=== PATIENT | male | born 1990 | race Caucasian/White ===

== ENCOUNTER 2023-05-12 01:57 | Emergency (ER) | payer BC, MEDICAID ==
[2023-05-12] MEDS ORDERED: Sodium Chloride 0.9% 1,000 ML IV ONE (02:26)
[2023-05-12] MEDS ORDERED: Loperamide 2 MG Cap PO STA (02:26)
[2023-05-12 02:34] LABS: HEMATOCRIT 43.9 % (40.1-51.0); HEMOGLOBIN 15.4 gm/dl (13.7-17.5); MEAN CORPUSCULAR HEMOGLOBIN 29.5 pg (25.7-32.2); MEAN CORPUSCULAR HGB CONC 35.1 g/dl (32.2-35.5); MEAN CORPUSCULAR VOLUME 84.1 fl (79.0-92.2); MEAN PLATELET VOLUME 9.9 fl (9.4-12.3); PLATELET COUNT,PLT 314 K/mm3 (163-337); RED BLOOD CELL COUNT 5.22 M/mm3 (4.63-6.08); WHITE BLOOD CELL COUNT,WBC 10.47 K/mm3 (4.23-9.07)
[2023-05-12 02:45] LABS: A/G RATIO 1.2 (1-2); ALBUMIN 4.3 g/dl (3.4-5.0); ANION GAP 13.8 (5-15); BILIRUBIN TOTAL 0.5 mg/dL (0.2-1.0); C-REACTIVE PROTEIN 0.8 mg/dL (<1.0); CALCIUM 9.5 mg/dL (8.5-10.1); CREATININE 1.2 mg/dL (0.7-1.3); EST CRCL DRUG DOSING (CG) 102.75 mL/min; MAGNESIUM 1.8 mg/dL (1.8-2.4); POTASSIUM,K 3.8 mEq/L (3.5-5.1)
[2023-05-12 03:02] LABS: BAND PERCENT MAN 0 % (0-10); BASOPHILS PERCENT MAN 0 (0.2-1.2); EOSINOPHILS PERCENT MAN 1 % (0.8-7.0); LYMPHOCYTES % ATYPICAL MANUAL 0 %; LYMPHOCYTES PERCENT MAN 24 % (20-40); MONOCYTES PERCENT MAN 9 % (2-10)
[2023-05-12 03:04] LABS: PLATELET COUNT ESTIMATE ADEQUATE
== END 2023-05-12 03:58 | disposition home or self-care (01) ==
LOC: JD.ED 01:57
DX: R19.7 Diarrhea, unspecified (principal); Z79.899 Other long term (current) drug therapy
CPT/HCPCS: 36415; 80053; 83735; 85007; 85027; 86140; 96360; 99284; A9270; J7030; 99282